=== PATIENT | female | born 1950 | race Caucasian/White ===

== ENCOUNTER 2017-05-27 20:09 | Inpatient (IN) | payer MEDICAID, OTHER ==
[~2017-05-27] VITALS: Ht 152.4 cm; Wt 85.4 kg
[2017-05-27 20:10] VITALS: Ht 152.4 cm; Wt 85.4 kg
[2017-05-27] MEDS ORDERED: PIPER-TAZO 3.375 GM IV (PMX) 100 ML IVPB STA (21:02)
[2017-05-27 21:26] LABS: ADD SCAN DIFF NO
[2017-05-27 21:28] LABS: ABNORMAL IP MESSAGE 1; HEMATOCRIT 42.7 % (37.0-47.0); HEMOGLOBIN 14.1 g/dl (12.0-16.0); MEAN CORPUSCULAR HEMOGLOBIN 26.5 pg (29.0-33.0); MEAN CORPUSCULAR VOLUME 80.1 fl (82.0-101.0); PLATELET COUNT 200 10^3/UL (140-415); RED BLOOD COUNT 5.33 10^6/ul (4.20-5.40); RED CELL DISTRIBUTION WIDTH 13.4 % (11.5-14.5)
[2017-05-27] MEDS ORDERED: VANCOMYCIN 1 GM (PMX) 250 ML IVPB ONE (21:30)
--- NOTE | 2017-05-27 21:58 | RADRPT ---
PROCEDURE: X-ray left foot CLINICAL INDICATION: Osteomyelitis of the first toe of the left foot TECHNIQUE: 3 views of the left foot. COMPARISON: None FINDINGS: No acute fracture or dislocation. Soft tissues unremarkable. Plantar and posterior dorsal calcaneal enthesophytes. IMPRESSION: No acute fracture. RPTAT: [facility] Physician Mike Date Time Electronically viewed and signed by Noble Perez Physician on 05/27/2017 21:58 RS/
[2017-05-27] MEDS ORDERED: TURM500C8 PO (22:00)
[2017-05-27] MEDS ORDERED: CYAN500T46 PO (22:00)
[2017-05-27] MEDS ORDERED: METF500T4 PO (22:00)
[2017-05-27] MEDS ORDERED: LECI400C PO (22:00)
[2017-05-27] MEDS ORDERED: MULTI PO (22:00)
[2017-05-27] MEDS ORDERED: LEVO100T87 PO (22:00)
--- NOTE | 2017-05-27 22:01 | RADRPT ---
PROCEDURE: XR Chest. CLINICAL INDICATION: Chest pain. Possible sepsis TECHNIQUE: Portable AP semi erect view of the chest was obtained. COMPARISON: None. FINDINGS: The cardiomediastinal silhouette is within normal limits. The lungs are clear. There is no evidenc e for pleural effusion, pneumothorax or pulmonary vascular congestion. The osseous structures are i ntact with no evidence for acute abnormality. Calcification is visible within the aorta RPTAT:HJJR IMPRESSION: 1.No evidence for acute intrathoracic pathology. 2. Aortic atherosclerosis is present. Physician Latonia Date Time Electronically viewed and signed by Physician Latonia on 05/27/2017 22:01 JR/
[2017-05-27 22:04] LABS: EOSINOPHILS # 0.2 10^3/ul (0.0-0.5); LYMPHOCYTES # 6.7 10^3/ul (0.8-2.9); MONOCYTE # 0.7 10^3/ul (0.3-0.9); NEUTROPHIL # 3.4 10^3/ul (1.6-7.5)
[2017-05-27] MEDS ORDERED: ACETAMINOPHEN 325 MG TAB PO PRN (23:00)
[2017-05-27] MEDS ORDERED: ONDANSETRON 4 MG INJ IV PRN (23:00)
--- NOTE | 2017-05-27 23:11 | ERA ---
ER Documentation Chief Complaint Date/Time DATE: 05/27/17 TIME: 21:00 Chief Complaint foot infection x 1month diabetic HPI 66-year-old female with history of diabetes mellitus type 2 brought to ED by family for evaluation of a 3 week history of worsening swelling and redness to her left foot. Her feet are insensate. Denies chest pain or palpitations. No shortness of breath or cough. No fevers or chills. ROS All systems reviewed and are negative except as per history of present illness. Medications Home Meds Reported Medications Lecithin, Soy (LECITHIN) 400 Mg Capsule, 400 MG PO, CAP 05/27/17 Turmeric Root Extract (TURMERIC) 500 Mg Capsule, 500 MG PO, CAP 05/27/17 Cyanocobalamin* (Vitamin B12*) 500 Mcg Tab, 1000 MCG PO DAILY, TAB 05/27/17 Multivitamins* (Theragran*) 1 Tab Tab, 1 TAB PO DAILY, TAB 05/27/17 Levothyroxine Sodium* (Levothyroxine Sodium*) 100 Mcg Tablet, 100 MCG PO BEFORE BREAKFAST, #30 TAB 05/27/17 Metformin* (Glucophage*) 500 Mg Tab, 500 MG PO WITH BREAKFAST DINNE, #30 TAB 05/27/17 Allergies Allergies: Coded Allergies: No Known Allergy (Unverified , 05/27/17) PMhx/Soc Reviewed in chart. As per HPI. History of Surgery: Yes (OVARIAN CYST REMOVAL ) Anesthesia Reaction: No Hx Neurological Disorder: No Hx Respiratory Disorders: No Hx Cardiac Disorders: No Hx Psychiatric Problems: No Hx Miscellaneous Medical Probl: Yes Hx Alcohol Use: No Hx Substance Use: No Hx Tobacco Use: No Smoking Status: Never smoker FmHx Not relevant to presenting Physical Exam Vitals Vital Signs Date Time Temp Pulse Resp B/P Pulse Ox O2 Delivery O2 Flow Rate FiO2 05/27/17 22:50 98.9 05/27/17 22:36 112 15 158/74 99 Room Air 05/27/17 21:02 99.0 103 14 187/82 100 Room Air 05/27/17 20:10 97.9 105 20 227/94 99 Physical Exam Const: Alert, no acute distress Head: Atraumatic Eyes: Normal Conjunctiva ENT: Normal External Ears, Nose and Mouth. Neck: Full range of motion..~ No meningismus. Resp: Clear to auscultation bilaterally Cardio: Regular rate and rhythm, no murmurs Abd: Soft, non tender, non distended. Normal bowel sounds Skin: No petechiae or rashes Back: No midline or flank tenderness Ext: Left foot: Swelling, erythema and induration of the plantar aspect overlying the first metatarsal. No subcutaneous crepitus. Neur: Awake and alert Psych: Normal Mood and Affect Result Diagram: 05/28/17 0510 05/28/17 0510 Results 24 hrs Laboratory Tests Test 05/27/17 21:10 05/27/17 22:40 White Blood Count 11.010^3/ul Red Blood Count 5.3310^6/ul Hemoglobin 14.1g/dl Hematocrit 42.7% Mean Corpuscular Volume 80.1fl Mean Corpuscular Hemoglobin 26.5pg Mean Corpuscular Hemoglobin Concent 33.0g/dl Red Cell Distribution Width 13.4% Platelet Count 83626^3/UL Mean Platelet Volume 10.0fl Neutrophils % 31.0% Lymphocytes % 61.0% Monocytes % 6.0% Eosinophils % 2.0% Neutrophils # 3.410^3/ul Lymphocytes # 6.710^3/ul Monocytes # 0.710^3/ul Eosinophils # 0.210^3/ul Sodium Level 136mmol/L Potassium Level 4.4mmol/L Chloride Level 96mmol/L Carbon Dioxide Level 22mmol/L Anion Gap 22 Blood Urea Nitrogen 16mg/dl Creatinine 0.61mg/dl Glucose Level 560mg/dl Calcium Level 9.0mg/dl Total Bilirubin 0.2mg/dl Direct Bilirubin 0.00mg/dl Indirect Bilirubin 0.2mg/dl Aspartate Amino Transf (AST/SGOT) 16IU/L Alanine Aminotransferase (ALT/SGPT) 27IU/L Alkaline Phosphatase 85IU/L Troponin I < 0.012ng/ml Total Protein 6.9g/dl Albumin 4.2g/dl Globulin 2.70g/dl Albumin/Globulin Ratio 1.55 Current Medications Medications (Trade) Dose Ordered Sig/Norma Route PRN Reason Start Time Stop Time Status Last Admin Dose Admin Vancomycin HCl 250 ml @ 125 mls/hr ONCE ONCE IVPB 05/27/17 21:30 05/27/17 23:29 DC 05/27/17 22:48 Piperacillin Sod/ Tazobactam Sod (Zosyn 3.375gm/ 100 ml (Pmx)) 100 ml @ 100 mls/hr ONCE STAT IVPB 05/27/17 21:02 05/27/17 22:01 DC 05/27/17 21:43 Ondansetron HCl (Zofran Inj) 4 mg BRIDGE ORDER PRN IV NAUSEA AND/OR VOMITING 05/27/17 23:00 05/28/17 06:59 DC Acetaminophen (Tylenol Tab) 650 mg ER BRIDGE PRN PO MILD PAIN/FEVER 05/27/17 23:00 05/28/17 06:59 DC EKG: TIME: 21:20. Sinus tachycardia. Ventricular rate 111. Normal GA QRS. No ST elevation depression. No ectopy. EP Interpretation: Sinus tachycardia otherwise normal EKG. IMAGING: PROCEDURE: XR Chest. CLINICAL INDICATION: Chest pain. Possible sepsis TECHNIQUE: Portable AP semi erect view of the chest was obtained. COMPARISON: None. FINDINGS: The cardiomediastinal silhouette is within normal limits. The lungs are clear. There is no evidence for pleural effusion, pneumothorax or pulmonary vascular congestion. The osseous structures are intact with no evidence for acute abnormality. Calcification is visible within the aorta RPTAT:HJJR IMPRESSION: 1.No evidence for acute intrathoracic pathology. 2. Aortic atherosclerosis is present. Fermin Neri Physician Date Time Electronically viewed and signed by Physician Latonia on 05/27/2017 22:01 JR/ PROCEDURE: X-ray left foot CLINICAL INDICATION: Osteomyelitis of the first toe of the left foot TECHNIQUE: 3 views of the left foot. COMPARISON: None FINDINGS: No acute fracture or dislocation. Soft tissues unremarkable. Plantar and posterior dorsal calcaneal enthesophytes. IMPRESSION: No acute fracture. RPTAT: [facility] Physician Mike Date Time Electronically viewed and signed by Noble Perez Physician on 05/27/2017 21:58 RS/ Procedures/MDM DOCUMENTS REVIEWED: ED nurse, no prior records MEDICAL DECISION MAKIN-year-old female with history of diabetes mellitus type 2 brought to ED by family for evaluation of a 3 week history of worsening swelling and redness to her left foot. Diabetic foot infection with cellulitis but no evidence of ascending lymphangitis or necrotizing fasciitis. No criteria for systemic inflammatory response syndrome or sepsis. No radiographic evidence of osteomyelitis. Severe hyperglycemia but no DKA or HOMK. Patient be admitted to Med/Surg for glycemic control, intravenous antibiotics, further evaluation and management. Counseled patient and family regarding diagnosis, diagnostic results and plan for admission. CALLS/CONSULTS: Time 22:30, Dr. Solano, Case discussed. Will evaluate and my require upgrade to tele or ICU. PATIENT CARE TRANSITIONED: Time: 22:30, Dr. Solano. Departure Diagnosis: Primary Impression: Diabetic infection of left foot Additional Impressions: Hyperglycemia due to type 2 diabetes mellitus Qualified Code: E11.65 - Type 2 diabetes mellitus with hyperglycemia, without long-term current use of insulin Uncontrolled hypertension Condition: Serious MORIS BECKER MD May 27, 2017 23:11
[2017-05-27 23:17] LABS: ALANINE AMINOTRANSFERASE 27 IU/L (13-69); ALBUMIN 4.2 g/dl (3.3-4.9); ALBUMIN/GLOBULIN RATIO 1.55; ALKALINE PHOSPHATASE 85 IU/L (42-121); ANION GAP 22 (8-16); ASPARTATE AMINO TRANSFERASE 16 IU/L (15-46); BILIRUBIN,INDIRECT 0.2 mg/dl (0-1.1); BILIRUBIN,TOTAL 0.2 mg/dl (0.2-1.3); BLOOD UREA NITROGEN 16 mg/dl (7-20); CARBON DIOXIDE 22 mmol/L (21-31); CHLORIDE 96 mmol/L (97-110); CREATININE 0.61 mg/dl (0.44-1.00); POTASSIUM 4.4 mmol/L (3.5-5.1); SODIUM 136 mmol/L (135-144); TOTAL PROTEIN 6.9 g/dl (6.1-8.1)
[2017-05-27 23:25] LABS: GLUCOSE 560 mg/dl (70-220)
[2017-05-27 23:32] LABS: TROPONIN-I < 0.012 ng/ml (0.00-0.12)
[2017-05-27] MEDS ORDERED: INSULIN LISPRO 100 UNIT/ML VIAL SC STA (23:32)
[2017-05-27] MEDS ORDERED: SOD CHLORIDE 0.9% 1,000 ML IV STA (23:32)
[2017-05-28] MEDS ORDERED: GLUCOSE GEL 15 GRAM TUBE BUCCAL PRN (00:30)
[2017-05-28] MEDS ORDERED: GLUCAGON 1 MG INJ IM PRN (00:30)
[2017-05-28] MEDS ORDERED: GLUCOSE GEL 15 GRAM TUBE PO PRN ×2 (00:30)
[2017-05-28] MEDS ORDERED: ACETAMINOPHEN 650MG/20.3ML CUP PO PRN (00:30)
[2017-05-28] MEDS ORDERED: ACCU-CHEK XX SCH (00:30)
[2017-05-28] MEDS ORDERED: ONDANSETRON 4 MG INJ IV PRN (00:30)
[2017-05-28] MEDS ORDERED: DEXTROSE 50% 50 ML SYRINGE IV PRN ×4 (00:30)
[2017-05-28] MEDS ORDERED: INSULIN HUMAN REGULAR 100 UNIT in SOD CHLORIDE 0.9% 99 ML IV SCH (00:30)
[2017-05-28] MEDS ORDERED: VANCOMYCIN IV PER PHARMACY XX SCH (00:30)
--- NOTE | 2017-05-28 00:30 | HP ---
Date/Time of Note Date/Time of Note DATE: 05/28/17 TIME: 00:14 Assessment/Plan VTE Prophylaxis VTE Prophylaxis Intervention: heparin Assessment/Plan Chief Complaint/Hosp Course This is a 66-year-old female being admitted to the ICU floor for: #1 severely uncontrolled hyperglycemia: Patient presented with a blood sugar of 560. Bicarb was 22. No clinical signs of DKA however we will order a urinalysis and observe for ketones. As patient is insulin axel at this point. She will likely need ICU admission for an insulin drip to control her blood sugars in a monitored in timely setting. Will order A1c. Based on her current blood sugars I do feel like patient likely is going to end up needing to be on insulin prior to discharge. Patient will need a inclusion special educator consult for diet and insulin teaching. #2 left left foot big toe wound: Currently there is no bruising or redness or erythema or warmth around the lesion. However, as there is sloughing of skin and exposure to the surrounding environment at this time I will start her on vancomycin IV. Will consult podiatry for further recommendations. We will also consult wound care. #3 hypertension: We will need to monitor patient's blood pressures. May need to be started on antihypertensive medication in which case would likely start with an YENNI inhibitor in the setting of diabetes mellitus. #4 diabetes: Severely uncontrolled diabetes. Will check a hemoglobin A1c. We will check a urine microalbumin. Podiatry is going to be seeing the patient for #2. 4 patient has elevated blood pressure and/or urine microalbumin she will need to be on an YENNI inhibitor. #5 hyperthyroidism: We will check a TSH level. Continue her current dose of levothyroxine and adjust as indicated. #6 leukocytosis: Mild elevation. No fevers at this time. This likely could be reactive or secondary to her foot lesion. Right now she is on vancomycin. Will continue to follow #7 DVT and GI prophylaxis: Heparin, Protonix. Further treatment strategy as per the clinical course per Problems: HPI/ROS Admit Date/Time Admit Date/Time Hx of Present Illness Chief complaint: Left foot infection This is a 66-year-old female with history of diabetes mellitus type 2 brought to ED by family for evaluation of a 3 week history of worsening swelling and redness to her left foot. Denies chest pain or palpitations. No shortness of breath or cough. No fevers or chills. She was not able to feel the wound on her foot. Though she does state that when she walks around that she is able to feel sensation on the bottom of her feet. Upon further questioning family does state that patient's blood sugars have been at times running from 140s to the 300s especially when she is stressed. They have only been giving oral medications. Allergies: NKDA Medications: See MAR ROS Const: As per HPI Eyes : No pain discharge or redness or change in visual acuity ENT: No pain, sore throat, congestion, congestion, dysphagia or discharge Respiratory: No shortness of breath, cough, sputum, wheezing, or pleuritic pain Cardiovascular: No chest pain, palpitation, PND, or edema GI : no change in appetite, abdominal pain, nausea, vomiting, diarrhea, constipation, or change in the color his stool Genitourinary: No dysuria, hematuria, flank pain , discharge or CVA tenderness Musculoskeletal: No joint pain, back pain, neck pain, restricted range of motion in neck or joints Skin: As per H Neuro: No headache, dizziness, syncope, seizure, focal weakness Endocrine: No polyuria, polydipsia, temperature intolerance Psych: No hallucination, depression, anxiety or suicidal ideation PMH/Family/Social Past Medical History Diabetes mellitus, hypothyroidism, hyperlipidemia, hypertension Past Surgical History Ovarian cyst removal Family History Significant Family History: cancer (Stomach cancer, lung cancer) Social History Alcohol Use: none Smoking Status: Never smoker Drug Use: none Exam/Review of Systems Vital Signs Vitals Vital Signs Date Time Temp Pulse Resp B/P Pulse Ox O2 Delivery O2 Flow Rate FiO2 05/27/17 22:50 98.9 05/27/17 22:36 112 15 158/74 99 Room Air Exam Exam General: Patient is well-developed well-nourished The patient is alert oriented -3 lying comfortably in bed. HEENT: Atraumatic, normocephalic. The pupils are equal, round and reactive. Extraocular motor are intact Neck: Supple with full range of motion. No rigidity or meningismus Chest: Nontender Lungs: Clear to auscultation bilaterally no crackles rales or wheezing Heart: Normal S1-S2, Regular rhythm and rate. No murmur, S3, or S4 Abdomen: Soft , nontender, nondistended , bowel sounds are present. No guarding no rebound tenderness , No masses or organomegaly. No costovertebral temporal angle mass Extremities: Normal to inspection, no edema no cyanosis Neurologic: Normal mental status, speech normal, cranial nerves II through XII are intact, motor and sensory are intact, no focal weakness Skin: Left foot big toe skin wound, dried blood. No pulsing or bruising noted. No redness or erythema or warmth. Vascular: 1 - 2+ pulses in bilateral lower feet Labs Result Diagram: 05/27/170 05/27/17 2240 Medications Medications Current Medications Miscellaneous Information (* Miscellaneous Pharmacy Order) Discontinue all previ... PROTOCOL ONCE XX ; Start 05/28/17 at 00:30; Stop 05/28/17 at 00:31; Status UNV Diagnostic Test (Pha) (Accu-Chek) 1 ea Q1H XX ; Start 05/28/17 at 00:30; Status UNV Dextrose (D50w Syringe) 25 ml Q15M PRN IV Till BS 80 mg/dL or above x2; Start 05/28/17 at 00:30; Status UNV Dextrose 50 ml 50 ml Q15M PRN IV Till BS 80 mg/dL or above x2; Start 05/28/17 at 00:30; Status UNV Sodium Chloride (NS) 1,000 ml @ 100 mls/hr Q10H IV ; Start 05/28/17 at 00:04; Status UNV Ondansetron HCl (Zofran Inj) 4 mg Q6H PRN IV NAUSEA AND/OR VOMITING; Start 05/28 at 00:30; Status UNV Acetaminophen (Tylenol Liquid) 650 mg Q6H PRN PO PAIN LEVEL 1-3 OR FEVER; Start 05/28/17 at 00:30; Status UNV Pantoprazole (Protonix Iv) 40 mg DAILY@06 IV ; Start 05/28/17 at 06:00; Status UNV Heparin Sodium (Porcine) (Heparin (5000 Units/0.5 ml)) 5,000 unit Q12 SC ; Start 05/28/17 at 00:30; Status UNV Miscellaneous Information (* Miscellaneous Pharmacy Order) Discontinue current oral sulfonylur... ONCE ONCE XX ; Start 05/28/17 at 00:30; Stop 05/28/17 at 00:31 ; Status UNV Diagnostic Test (Pha) (Accu-Chek) XX ; Start 05/28/17 at 02:00; Status UNV Miscellaneous Information (* Miscellaneous Pharmacy Order) HYPOGLYCEMIA PROTOCOL w... ONCE ONCE XX ; Start 05/28/17 at 00:30; Stop 05/28/17 at 00:31; Status UNV Insulin Aspart (Novolog Insulin Pen) NOVOLOG *MILD* ALGORI... Q4 SC ; Start 05/28 at 01:00; Status UNV Miscellaneous Information (* Miscellaneous Pharmacy Order) Discontinue all previ... ONCE ONCE XX ; Start 05/28/17 at 00:30; Stop 05/28/17 at 00:31; Status UNV SHAISTA MILLS May 28, 2017 00:27
[2017-05-28 01:41] LABS: ADD UMIC YES; UR ASCORBIC ACID NEGATIVE (NEGATIVE); UR BACTERIA FEW /HPF (NONE SEEN); UR BILIRUBIN (Dip) NEGATIVE (NEGATIVE); UR BLOOD (Dip) 2+ mg/dL (NEGATIVE); UR BUDDING YEAST FEW /HPF (NONE SEEN); UR CLARITY CLOUDY (CLEAR); UR COLOR YELLOW (YELLOW); UR GLUCOSE (Dip) 3+ mg/dL (NEGATIVE); UR KETONES (Dip) NEGATIVE (NEGATIVE); UR LEUKOCYTE ESTERASE (Dip) 3+ Leu/ul (NEGATIVE); UR NITRITE (Dip) NEGATIVE (NEGATIVE); UR RBC 15 /HPF (0-5); UR SPECIFIC GRAVITY (Dip) 1.028 (1.003-1.030); UR TOTAL PROTEIN (Dip) NEGATIVE (NEGATIVE); UR UROBILINOGEN (Dip) NEGATIVE (NEGATIVE); UR WBC CLUMPS FEW /HPF (NONE SEEN)
[2017-05-28 04:04] LABS: ALBUMIN 4.5 g/dl (3.3-4.9); ALBUMIN/GLOBULIN RATIO 1.45; BILIRUBIN,INDIRECT 0.2 mg/dl (0-1.1); BILIRUBIN,TOTAL 0.2 mg/dl (0.2-1.3); CALCIUM 8.4 mg/dl (8.4-10.2); CREATININE 0.48 mg/dl (0.44-1.00); POTASSIUM 3.7 mmol/L (3.5-5.1); TOTAL PROTEIN 7.6 g/dl (6.1-8.1)
[2017-05-28] MEDS ORDERED: INSULIN ASPART [NOVOLOG] 3 ML PEN SC SCH ×2 (05:00→07:35)
[2017-05-28 05:09] VITALS: TEMP 98.9
[2017-05-28 05:18] LABS: ADD SCAN DIFF NO
[2017-05-28 05:24] LABS: ABNORMAL IP MESSAGE 1; BASOPHIL # 0.1 10^3/ul (0.0-0.1); BASOPHILS % 0.4 % (0.0-2.0); EOSINOPHILS # 0.1 10^3/ul (0.0-0.5); EOSINOPHILS % 0.4 % (0.0-7.0); HEMATOCRIT 37.9 % (37.0-47.0); HEMOGLOBIN 12.8 g/dl (12.0-16.0); MEAN CORPUSCULAR HEMOGLOBIN 26.9 pg (29.0-33.0); MEAN CORPUSCULAR HGB CONC 33.8 g/dl (32.0-37.0); MEAN CORPUSCULAR VOLUME 79.6 fl (82.0-101.0); MEAN PLATELET VOLUME 9.8 fl (7.4-10.4); MONOCYTE # 0.8 10^3/ul (0.3-0.9); NEUTROPHIL # 5.1 10^3/ul (1.6-7.5); NEUTROPHILS % 31.7 % (39.0-77.0); PLATELET COUNT 189 10^3/UL (140-415); RED BLOOD COUNT 4.76 10^6/ul (4.20-5.40); RED CELL DISTRIBUTION WIDTH 13.4 % (11.5-14.5)
[2017-05-28 05:33] LABS: LYMPHOCYTES % 62.2 % (15.0-51.0)
[2017-05-28 05:36] LABS: ALBUMIN 3.9 g/dl (3.3-4.9); ALBUMIN/GLOBULIN RATIO 1.39; BILIRUBIN,INDIRECT 0.2 mg/dl (0-1.1); BILIRUBIN,TOTAL 0.2 mg/dl (0.2-1.3); CALCIUM 8.8 mg/dl (8.4-10.2); CREATININE 0.45 mg/dl (0.44-1.00); POTASSIUM 4.1 mmol/L (3.5-5.1); TOTAL PROTEIN 6.7 g/dl (6.1-8.1)
[2017-05-28 06:06] LABS: THYROID STIMULATING HORMONE 0.981 MIU/L (0.465-4.680)
[2017-05-28] MEDS: LEVOTHYROXINE 100 MCG TAB PO SCH (06:38)
[2017-05-28] MEDS: SOD CHLORIDE 0.9% 1,000 ML IV SCH ×3 (06:38→20:03)
[2017-05-28] MEDS: PANTOPRAZOLE 40 MG INJ IV SCH (06:38)
[2017-05-28] MEDS: HEPARIN 5,000 UNIT/0.5 ML VIAL SC SCH ×3 (06:48→20:03)
[2017-05-28 08:07] VITALS: BP 156/73; RESP 20
[2017-05-28] MEDS: CEFTRIAXONE 1 GM/50 ML (PMX) 50 ML IVPB SCH (08:19)
[2017-05-28] MEDS: INSULIN GLARGINE [LANtus] 3 ML PEN SC SCH (08:28)
[2017-05-28] MEDS: INSULIN ASPART [NOVOLOG] 3 ML PEN SC SCH ×4 (08:28→22:26)
[2017-05-28] MEDS ORDERED: INSULIN GLARGINE [LANtus] 3 ML PEN SC SCH (09:00)
[2017-05-28] MEDS: FLUCONAZOLE 200 MG/NS (PMX) 100 ML IVPB SCH (11:02)
[2017-05-28] MEDS: VANCOMYCIN 750 MG in SOD CHLORIDE 0.9% 150 ML IVPB SCH ×2 (12:13→23:31)
--- NOTE | 2017-05-28 14:50 | RADRPT ---
PROCEDURE: US bilateral lower extremity arteries. CLINICAL INDICATION: Bilateral leg pain. Claudication that interferes significantly with the uche ent's lifestyle. TECHNIQUE: Multiple longitudinal and transverse images of the bilateral lower extremity arteries w ere obtained with hollins scale, pulsed Doppler, and color Doppler imaging. COMPARISON: No prior studies are available for comparison. FINDINGS: Right VICE PRESIDENT OF HUMAN RESOURCES:98 cm/sec PSFA:100 cm/sec MSFA:100 cm/sec DSFA:95 cm/sec POP:65 cm/sec COLLISION REPAIR TECHNICIAN:94 cm/sec DPA:76 cm/sec Left VICE PRESIDENT OF H[employer]:98 cm/sec PSFA:123 cm/sec MSFA:106 cm/sec DSFA:118 cm/sec POP:106 cm/sec COLLISION REPAIR TECHNICIAN:102 cm/sec DPA:97 cm/sec The right ankle-brachial index is 1.2 and the left ankle-brachial index is 1.3. There is normal triphasic or biphasic flow throughout bilaterally. There is no significant plaque, stenosis, or occlusion. Mild plaque is present bilaterally in the femoral and popliteal systems. IMPRESSION: 1. Mild plaque formation without evidence for hemodynamically significant stenosis or occlusion. RPTAT: QQ .Angel Arredondo MD, MD Date Time Electronically viewed and signed by .Angel Arredondo MD, on 05/28/2017 14:49 .R/
[2017-05-28] MEDS ORDERED: VANCOMYCIN 1.25 GM in SOD CHLORIDE 0.9% 250 ML IVPB SCH (16:00)
[2017-05-28 19:33] VITALS: BP 164/74; RESP 20
[2017-05-29] VITALS: BP 120/60; PULSE 85
[2017-05-29] MEDS ORDERED: ACCU-CHEK XX SCH ×3 (02:00)
[2017-05-29] MEDS: ACCU-CHEK XX SCH ×2 (02:00→23:47)
[2017-05-29 02:18] VITALS: BP 132/67; RESP 18
[2017-05-29 05:36] LABS: ADD SCAN DIFF NO
[2017-05-29 05:40] LABS: ABNORMAL IP MESSAGE 1; BASOPHIL # 0.1 10^3/ul (0.0-0.1); BASOPHILS % 0.4 % (0.0-2.0); EOSINOPHILS # 0.2 10^3/ul (0.0-0.5); EOSINOPHILS % 0.9 % (0.0-7.0); HEMATOCRIT 40.1 % (37.0-47.0); HEMOGLOBIN 12.7 g/dl (12.0-16.0); LYMPHOCYTES # 11.8 10^3/ul (0.8-2.9); MEAN CORPUSCULAR HEMOGLOBIN 25.9 pg (29.0-33.0); MEAN CORPUSCULAR HGB CONC 31.7 g/dl (32.0-37.0); MEAN CORPUSCULAR VOLUME 81.7 fl (82.0-101.0); MONOCYTE # 0.6 10^3/ul (0.3-0.9); MONOCYTES % 3.7 % (0.0-11.0); NEUTROPHIL # 3.5 10^3/ul (1.6-7.5); NEUTROPHILS % 21.7 % (39.0-77.0); PLATELET COUNT 190 10^3/UL (140-415); RED BLOOD COUNT 4.91 10^6/ul (4.20-5.40); RED CELL DISTRIBUTION WIDTH 14.1 % (11.5-14.5); WHITE BLOOD COUNT 16.2 10^3/ul (4.8-10.8)
[2017-05-29 06:03] LABS: CALCIUM 8.4 mg/dl (8.4-10.2); CREATININE 0.54 mg/dl (0.44-1.00); POTASSIUM 4.1 mmol/L (3.5-5.1)
[2017-05-29] MEDS: SOD CHLORIDE 0.9% 1,000 ML IV SCH ×2 (06:04→10:36)
[2017-05-29] MEDS: LEVOTHYROXINE 100 MCG TAB PO SCH (06:06)
[2017-05-29] MEDS: PANTOPRAZOLE 40 MG INJ IV SCH (06:06)
[2017-05-29 06:17] LABS: LYMPHOCYTES % 73.1 % (15.0-51.0)
[2017-05-29 06:49] LABS: MAGNESIUM 1.6 mg/dl (1.7-2.5); PHOSPHORUS 3.8 mg/dl (2.5-4.9)
[2017-05-29 07:59] VITALS: BP 161/76; RESP 20
[2017-05-29] MEDS: CEFTRIAXONE 1 GM/50 ML (PMX) 50 ML IVPB SCH (08:00)
[2017-05-29] MEDS: INSULIN ASPART [NOVOLOG] 3 ML PEN SC SCH ×5 (08:04→20:12)
[2017-05-29] MEDS: INSULIN GLARGINE [LANtus] 3 ML PEN SC SCH (08:05)
[2017-05-29] MEDS: FLUCONAZOLE 200 MG/NS (PMX) 100 ML IVPB SCH (10:38)
[2017-05-29] MEDS: HEPARIN 5,000 UNIT/0.5 ML VIAL SC SCH ×2 (10:43→21:20)
[2017-05-29] MEDS: VANCOMYCIN 750 MG in SOD CHLORIDE 0.9% 150 ML IVPB SCH (12:42)
[2017-05-29 13:27] LABS: MICROALBUMIN 2.6 mg/dL
[2017-05-29 14:34] VITALS: BP 141/73; RESP 20
[2017-05-29] MEDS ORDERED: VANCOMYCIN 500MG/NS (PMX) 100 ML IVPB ONE (15:00)
--- NOTE | 2017-05-29 17:01 | PN ---
Date/Time of Note Date/Time of Note DATE: 05/29/17 TIME: 16:57 Assessment/Plan VTE Prophylaxis VTE Prophylaxis Intervention: heparin Lines/Catheters IV [facility]from [facility] Peripheral IV Urinary Cath still in place: No Assessment/Plan Chief Complaint/Hosp Course A/P: 66-year-old female being admitted for: #1 severely uncontrolled hyperglycemia: Patient presented with a blood sugar of 560. Bicarb was 22. No clinical signs of DKA however. A1c appears to be > 14. -Follow-up paraeducator consult for diet and insulin teaching. -Add short acting insulin and increase Lantus to 25 units, continue insulin sliding scale as well #2 left left foot big toe wound: Currently there is no bruising or redness or erythema or warmth around the lesion. However, as there is sloughing of skin and exposure to the surrounding environment at this time -Continue vancomycin IV. -Follow-up podiatry for further recommendations, and wound care. #3 hypertension -in the high normal range - we will need to monitor patient's blood pressures. - May need to be started on antihypertensive medication in which case would likely start with an YENNI inhibitor in the setting of diabetes mellitus. #4 hyperthyroidism -follow-up TSH level. Continue her current dose of levothyroxine and adjust as indicated. #6 leukocytosis: Mild elevation. No fevers at this time. This likely could be reactive or secondary to her foot lesion. Right now she is on vancomycin. Will continue to follow #7 DVT and GI prophylaxis: Heparin, Protonix. Problems: Subjective 24 Hr Interval Summary Free Text/Dictation No acute events overnight, still waiting to be seen by podiatry team. Exam/Review of Systems Vital Signs Vitals Vital Signs Date Time Temp Pulse Resp B/P Pulse Ox O2 Delivery O2 Flow Rate FiO2 05/29/17 14:34 98.1 91 20 141/73 97 05/28/17 05:09 Room Air Intake and Output 05/28/17 05/28/17 05/29/17 15:00 23:00 07:00 Intake Total 300 ml 1880 ml 1250 ml Output Total 1200 ml 400 ml Balance 300 ml 680 ml 850 ml Exam General: Patient is well-developed well-nourished The patient is alert oriented -3 lying comfortably in bed. HEENT: Atraumatic, normocephalic. The pupils are equal, round and reactive. Extraocular motor are intact Neck: Supple with full range of motion. No rigidity or meningismus Chest: Nontender Lungs: Clear to auscultation bilaterally no crackles rales or wheezing Heart: Normal S1-S2, Regular rhythm and rate. No murmur, S3, or S4 Abdomen: Soft , nontender, nondistended , bowel sounds are present. No guarding no rebound tenderness , No masses or organomegaly. No costovertebral temporal angle mass Extremities: Normal to inspection, no edema no cyanosis Neurologic: Normal mental status, speech normal, cranial nerves II through XII are intact, motor and sensory are intact, no focal weakness Skin: Left foot big toe skin wound, dried blood. No pulsing or bruising noted. No redness or erythema or warmth. Vascular: 1 - 2+ pulses in bilateral lower feet Results Result Diagram: 05/29/170 05/29/170 Results 24 hrs Laboratory Tests Test 05/28/17 17:05 05/28/17 22:23 05/29/17 04:40 05/29/17 08:00 Bedside Glucose 310 H 169 312 H White Blood Count 16.2 H Red Blood Count 4.91 Hemoglobin 12.7 Hematocrit 40.1 Mean Corpuscular Volume 81.7 L Mean Corpuscular Hemoglobin 25.9 L Mean Corpuscular Hemoglobin Concent 31.7 L Red Cell Distribution Width 14.1 Platelet Count 190 Mean Platelet Volume 10.0 Neutrophils % 21.7 L Lymphocytes % 73.1 H Monocytes % 3.7 Eosinophils % 0.9 Basophils % 0.4 Nucleated Red Blood Cells % 0.0 Neutrophils # 3.5 Lymphocytes # 11.8 H Monocytes # 0.6 Eosinophils # 0.2 Basophils # 0.1 Nucleated Red Blood Cells # 0.0 Sodium Level 134 L Potassium Level 4.1 Chloride Level 102 Carbon Dioxide Level 25 Anion Gap 11 # Blood Urea Nitrogen 13 Creatinine 0.54 Glucose Level 304 H Calcium Level 8.4 Phosphorus Level 3.8 Magnesium Level 1.6 L Test 05/29/17 11:15 05/29/17 11:16 05/29/17 11:58 Lab Scanned Report REFERENCE LAB Vancomycin Level Trough 6.2 L Bedside Glucose 184 Medications Medications Current Medications Sodium Chloride (NS) 1,000 ml @ 100 mls/hr Q10H IV Last administered on 10:36; Admin Dose 100 MLS/HR; Start 05/28/17 at 00:04 Ondansetron HCl (Zofran Inj) 4 mg Q6H PRN IV NAUSEA AND/OR VOMITING; Start 05/28 at 00:30 Acetaminophen (Tylenol Liquid) 650 mg Q6H PRN PO PAIN LEVEL 1-3 OR FEVER; Start 05/28/17 at 00:30 Pantoprazole (Protonix Iv) 40 mg DAILY@06 IV Last administered on 05/29/17 06: 06; Admin Dose 40 MG; Start 05/28/17 at 06:00 Heparin Sodium (Porcine) (Heparin (5000 Units/0.5 ml)) 5,000 unit Q12 SC Last administered on 05/29/17 10:43; Admin Dose 5,000 UNIT; Start 05/28/17 at 00:30 Miscellaneous Information 1 ea NOTE XX ; Start 05/28/17 at 00:30 Glucose (Glutose) 15 gm Q15M PRN PO DECREASED GLUCOSE; Start 05/28/17 at 00:30 Glucose (Glutose) 22.5 gm Q15M PRN PO DECREASED GLUCOSE; Start 05/28/17 at 00:30 Dextrose (D50w Syringe) 25 ml Q15M PRN IV DECREASED GLUCOSE; Start 05/28/17 at 00:30 Dextrose (D50w Syringe) 50 ml Q15M PRN IV DECREASED GLUCOSE; Start 05/28/17 at 00:30 Glucagon (Glucagen) 1 mg Q15M PRN IM DECREASED GLUCOSE; Start 05/28/17 at 00:30 Glucose 15 gm 15 gm Q15M PRN BUCCAL DECREASED GLUCOSE; Start 05/28/17 at 00:30 Fluconazole 100 ml @ 100 mls/hr Q24H IVPB Last administered on 05/29/17 10:38 ; Admin Dose 100 MLS/HR; Start 05/28/17 at 09:00 Ceftriaxone Sodium (Rocephin) 50 ml @ 100 mls/hr Q24H IVPB Last administered on 05/29/17 08:00; Admin Dose 100 MLS/HR; Start 05/28/17 at 08:00 Insulin Glargine (Lantus) 20 unit 08 SC Last administered on 05/29/17 08:05; Admin Dose 20 UNIT; Start 05/28/17 at 08:00 Diagnostic Test (Pha) 1 ea 1 ea 02 XX ; Start 05/29/17 at 02:00 Vancomycin HCl 1.25 gm/Sodium Chloride 250 ml @ 83.333 mls/ hr Q12H IVPB ; Start 05/30/17 at 01:00 Magnesium Sulfate (Magnesium Sulfate 2 Gm/50 ml) 50 ml @ 25 mls/hr ONCE IVPB ; Start 05/29/17 at 18:30; Stop 05/29/17 at 20:29 MARCOS MULLIGAN May 29, 2017 17:01
[2017-05-29] MEDS ORDERED: MAGNESIUM SULFATE 2 GM/50 ML 50 ML IVPB SCH (18:30)
[2017-05-29 21:00] VITALS: BP 150/70; RESP 20
[2017-05-30] MEDS: VANCOMYCIN 1.25 GM in SOD CHLORIDE 0.9% 250 ML IVPB SCH ×2 (00:38→14:38)
[2017-05-30] MEDS: SOD CHLORIDE 0.9% 1,000 ML IV SCH ×2 (00:49→08:16)
[2017-05-30 02:00] VITALS: BP 136/69; RESP 18
[2017-05-30 05:01] LABS: ADD SCAN DIFF NO
[2017-05-30 05:08] LABS: ABNORMAL IP MESSAGE 1; BASOPHIL # 0.1 10^3/ul (0.0-0.1); BASOPHILS % 0.3 % (0.0-2.0); EOSINOPHILS # 0.1 10^3/ul (0.0-0.5); EOSINOPHILS % 0.9 % (0.0-7.0); HEMATOCRIT 38.8 % (37.0-47.0); HEMOGLOBIN 12.5 g/dl (12.0-16.0); MEAN CORPUSCULAR HEMOGLOBIN 26.2 pg (29.0-33.0); MEAN CORPUSCULAR HGB CONC 32.2 g/dl (32.0-37.0); MEAN CORPUSCULAR VOLUME 81.2 fl (82.0-101.0); MEAN PLATELET VOLUME 9.8 fl (7.4-10.4); MONOCYTE # 0.6 10^3/ul (0.3-0.9); MONOCYTES % 3.5 % (0.0-11.0); NEUTROPHIL # 3.8 10^3/ul (1.6-7.5); NEUTROPHILS % 24.5 % (39.0-77.0); PLATELET COUNT 196 10^3/UL (140-415); RED BLOOD COUNT 4.78 10^6/ul (4.20-5.40); RED CELL DISTRIBUTION WIDTH 13.8 % (11.5-14.5); WHITE BLOOD COUNT 15.5 10^3/ul (4.8-10.8)
[2017-05-30] MEDS: LEVOTHYROXINE 100 MCG TAB PO SCH (05:15)
[2017-05-30 05:24] LABS: LYMPHOCYTES % 70.6 % (15.0-51.0)
[2017-05-30 05:42] LABS: CALCIUM 8.8 mg/dl (8.4-10.2); CREATININE 0.53 mg/dl (0.44-1.00); POTASSIUM 4.6 mmol/L (3.5-5.1)
[2017-05-30] MEDS ORDERED: PANTOPRAZOLE (EC) 40 MG TAB PO SCH (06:00)
[2017-05-30 07:30] VITALS: BP 144/77; RESP 16
[2017-05-30] MEDS ORDERED: INSULIN GLARGINE [LANtus] 3 ML PEN SC SCH (08:00)
[2017-05-30] MEDS: INSULIN ASPART [NOVOLOG] 3 ML PEN SC SCH ×6 (08:09→17:20)
[2017-05-30] MEDS: CEFTRIAXONE 1 GM/50 ML (PMX) 50 ML IVPB SCH (08:11)
[2017-05-30] MEDS: FLUCONAZOLE 200 MG/NS (PMX) 100 ML IVPB SCH (09:32)
[2017-05-30] MEDS: HEPARIN 5,000 UNIT/0.5 ML VIAL SC SCH (09:32)
[2017-05-30 14:27] VITALS: BP 166/71; RESP 16
--- NOTE | 2017-05-30 15:12 | PDOCDIS ---
Discharge Instructions CONDITION Patient Condition: Stable HOME CARE INSTRUCTIONS: Special Diet: 1800 CCHO ACTIVITY: Activity Restrictions: Slowly Increase Activity FOLLOW UP/APPOINTMENTS Follow-up Plan Please take your medicines, especially her insulin regimen, as prescribed. Please continue your antibiotics as prescribed. Please follow-up with your primary doctor in the next 1 week MARCOS MULLIGAN May 30, 2017 15:12
[2017-05-30] MEDS ORDERED: NOVO3I SC (15:16)
[2017-05-30] MEDS ORDERED: LEVO750T25 PO (15:16)
[2017-05-30] MEDS ORDERED: LANT3I SC (15:16)
[2017-05-30] MEDS ORDERED: LISINOPRIL 10 MG TAB PO SCH (15:30)
[2017-05-30] MEDS ORDERED: hydrALAzine 20 MG INJ IV PRN (15:30)
--- NOTE | 2017-05-30 15:33 | DS ---
Date/Time of Note Date/Time of Note DATE: 05/30/17 TIME: 15:27 Discharge Summary Admission/Discharge Info Admit Date/Time May 27, 2017 at 23:00 Discharge Date/Time Discharge Diagnosis #1 severely uncontrolled hyperglycemia - A1c appears to be > 14. #2 left left foot big toe wound: Currently there is no bruising or redness or erythema or warmth around the lesion. #3 hypertension #4 hyperthyroidism - on levothyroxine Patient Condition: Stable Hx of Present Illness Hospital Course 66-year-old female with history of diabetes mellitus type 2 brought to ED by family for evaluation of a 3 week history of worsening swelling and redness to her left foot. Denies chest pain or palpitations. No shortness of breath or cough. No fevers or chills. She was not able to feel the wound on her foot. Though she does state that when she walks around that she is able to feel sensation on the bottom of her feet. Upon further questioning family does state that patient's blood sugars have been at times running from 140s to the 300s especially when she is stressed. They have only been giving oral medications. She was admitted to medical surgical unit, seen by podiatry team, found with severely uncontrolled hyperglycemia: Patient presented with a blood sugar of 560. Bicarb was 22. No clinical signs of DKA however. A1c appears to be > 14, family living educator consulted for diet and insulin teaching. Regarding her left left foot big toe wound: Currently there is no bruising or redness or erythema or warmth around the lesion. However, as there is sloughing of skin and exposure to the surrounding environment. Podiatry team evaluated the foot indicated no clinical needs for any incision and drainage at this time. Foot x- ray was negative for signs of any fractures or osteomyelitis. Patient was placed on antibiotics, her sugars and her symptoms improved. The day of discharge she was also started on YENNI inhibitor to help control her blood pressure. She will be discharged home today in improved condition, has been instructed to take her insulin now along with her Metformin, along with her new blood pressure medicines and to complete antibiotics for 7 more days. Please see discharge medication list for full list of discharge medications. Home Meds Active Scripts Levofloxacin* (Levaquin*) 750 Mg Tablet, 750 MG PO DAILY for 7 Days, TAB Prov:MARCOS MULLIGAN 05/30/17 Insulin Glargine* (Lantus*) 100 Unit/Ml Soln, 25 UNIT SC 08 for 30 Days, 4 Refills Prov:MARCOS MULLIGAN S. 05/30/17 Insulin Aspart* (Novolog Insulin Pen*) 100 Unit/Ml Soln, 8 UNIT SC WITH MEALS for 30 Days, 4 Refills Prov:MARCOS MULLIGAN S. 05/30/17 Reported Medications Lecithin, Soy (LECITHIN) 400 Mg Capsule, 400 MG PO, CAP 05/27/17 Turmeric Root Extract (TURMERIC) 500 Mg Capsule, 500 MG PO, CAP 05/27/17 Cyanocobalamin* (Vitamin B12*) 500 Mcg Tab, 1000 MCG PO DAILY, TAB 05/27/17 Multivitamins* (Theragran*) 1 Tab Tab, 1 TAB PO DAILY, TAB 05/27/17 Levothyroxine Sodium* (Levothyroxine Sodium*) 100 Mcg Tablet, 100 MCG PO BEFORE BREAKFAST, #30 TAB 05/27/17 Metformin* (Glucophage*) 500 Mg Tab, 500 MG PO WITH BREAKFAST DINNE, #30 TAB 05/27/17 Primary Care Provider Care Physician No Primary Time spent on discharge: > 30 minutes Pending Labs Laboratory Tests Test 05/29/17 17:18 05/29/17 17:45 05/29/17 20:12 05/30/17 04:30 Bedside Glucose 204mg/dL (70-220) 171mg/dL (70-220) Troponin I < 0.012ng/ml (0.00-0.12) White Blood Count 15.510^3/ul (4.8-10.8) Red Blood Count 4.7810^6/ul (4.20-5.40) Hemoglobin 12.5g/dl (12.0-16.0) Hematocrit 38.8% (37.0-47.0) Mean Corpuscular Volume 81.2fl (82.0-101.0) Mean Corpuscular Hemoglobin 26.2pg (29.0-33.0) Mean Corpuscular Hemoglobin Concent 32.2g/dl (32.0-37.0) Red Cell Distribution Width 13.8% (11.5-14.5) Platelet Count 45076^3/UL (140-415) Mean Platelet Volume 9.8fl (7.4-10.4) Neutrophils % 24.5% (39.0-77.0) Lymphocytes % 70.6% (15.0-51.0) Monocytes % 3.5% (0.0-11.0) Eosinophils % 0.9% (0.0-7.0) Basophils % 0.3% (0.0-2.0) Nucleated Red Blood Cells % 0.0/100WBC (0.0-0.0) Neutrophils # 3.810^3/ul (1.6-7.5) Lymphocytes # 11.010^3/ul (0.8-2.9) Monocytes # 0.610^3/ul (0.3-0.9) Eosinophils # 0.110^3/ul (0.0-0.5) Basophils # 0.110^3/ul (0.0-0.1) Nucleated Red Blood Cells # 0.010^3/ul (0.0-0.0) Sodium Level 140mmol/L (135-144) Potassium Level 4.6mmol/L (3.5-5.1) Chloride Level 101mmol/L (97-110) Carbon Dioxide Level 29mmol/L (21-31) Anion Gap 15 (8-16) Blood Urea Nitrogen 15mg/dl (7-20) Creatinine 0.53mg/dl (0.44-1.00) Glucose Level 239mg/dl (70-220) Calcium Level 8.8mg/dl (8.4-10.2) Phosphorus Level 5.0mg/dl (2.5-4.9) Magnesium Level 2.0mg/dl (1.7-2.5) Test 05/30/17 08:07 05/30/17 12:09 Bedside Glucose 229mg/dL (70-220) 173mg/dL (70-220) MARCOS MULLIGAN May 30, 2017 15:33
--- NOTE | 2017-05-30 16:55 | RADRPT ---
Vent Rate: 104 bpm RR Interval: 0 msec MS Interval: 138 msec QRS Duration: 70 msec QT Interval: 330 msec QTC Interval: 433 msec P-R-T [place]: 45 - 82 - 38 degrees Sinus tachycardia Low voltage QRS Borderline ECG Electronically Signed By: Hari Alvarado [id number]
== END 2017-05-30 18:50 | disposition home or self-care (01) | DRG 639 ==
LOC: E/R 20:09 → PP2 23:00
PROVIDERS: ADMIT Family Medicine; ATTEND Family Medicine
DX: E11.65 Type 2 diabetes mellitus with hyperglycemia (principal); I10 Essential (primary) hypertension; E03.9 Hypothyroidism, unspecified; S91.109A Unspecified open wound of unspecified toe(s) without damage to nail, initial encounter; D72.829 Elevated white blood cell count, unspecified; X58.XXXA Exposure to other specified factors, initial encounter; M79.89 Other specified soft tissue disorders; Z79.4 Long term (current) use of insulin
CPT/HCPCS: 36415; 71010; 80048; 80053; 80202; 81001; 82043; 82962; 83036; 83735; 84100; 84443; 84484; 85025; 87040; 87081; 87086; 93005; 93922; 96372; 96374; 96375; C9113; J0360; J0696; J1644; J1815; J2543; J3370; J3475; J7030; J7050